=== PATIENT | male | born 1965 | race Caucasian/White ===

== ENCOUNTER 2017-04-03 09:02 | Emergency (ER) | payer BC ==
[2017-04-03] MEDS ORDERED: Ketorolac Tromethamine 30 MG/ML VIAL ONE (09:37)
[2017-04-03 09:46] LABS: #Basophils 0.1 thou/uL (0.0-0.2); #Eosinphils 0.4 thou/uL (0.0-0.7); #Lymphocytes 2.4 thou/uL (1.20-3.40); #Monocytes 0.7 thou/uL (0.11-0.59); #Neutrophils 4.2 thou/uL (1.40-6.50); %Basophils 0.7 % (0.0-1.0); %Eosinophils 5.2 % (0.0-10.0); %Monocytes 8.5 % (0.0-10.0); Hematocrit 41.5 % (42.0-52.0); Mean Platelet Volume 7.7 fL (7.4-10.4); Red Blood Cell (RBC) Count 4.55 mill/uL (4.70-6.10); White Blood Cell (WBC) Count 7.6 thou/uL (4.8-10.8)
[2017-04-03 09:53] LABS: PTT 26.4 SEC (22.9-36.1); Prothrombin Time 14.2 SEC (12.0-14.7)
[2017-04-03 10:14] LABS: Anion Gap 12 mmol/L (10-20); BUN (Urea Nitrogen) 13 mg/dL (8.4-25.7); Calc. Creatinine Clearance 0 mL/min (70-130); Carbon Dioxide 21 mmol/L (22-29); Chloride 106 mmol/L (98-107); Estimated GFR-MDRD 82
--- NOTE | 2017-04-03 12:08 | ULT ---
VENOUS DOPPLER ULTRASOUND OF THE LEFT UPPER EXTREMITY: Date: 04/03/17 HISTORY: Left upper arm edema. Patient had shoulder replacement on 02/26/17. TECHNIQUE: Garza scale ultrasound with color flow and spectral Doppler imaging of the deep venous system of the left upper extremity was performed. FINDINGS: There is good flow and normal spectral waveforms and compression in the left internal jugular, subcl pita, axillary, basilic, brachial, radial, ulnar, and cephalic veins. IMPRESSION: No evidence of deep venous thrombosis in the left upper extremity. POS: [facility]
[2017-04-03] MEDS ORDERED: Cephalexin 250 MG CAP ONE (12:54)
[2017-04-03] MEDS ORDERED: Sulfameth/Trimethoprim DS 800-160mg TAB ONE (12:54)
== END 2017-04-03 13:10 | disposition home or self-care (01) ==
LOC: ERS 09:02
DX: L03.114 Cellulitis of left upper limb (principal); E03.9 Hypothyroidism, unspecified; J45.909 Unspecified asthma, uncomplicated; F32.9 Major depressive disorder, single episode, unspecified; Z79.899 Other long term (current) drug therapy
CPT/HCPCS: 36415; 80048; 85025; 85379; 85610; 85730; 96361; 96374; J1885

== ENCOUNTER 2017-04-15 08:59 | Emergency (ER) | payer BC, OTHER ==
--- NOTE | 2017-04-15 10:00 | RAD ---
LEFT SHOULDER THREE VIEWS: History: Left shoulder pain. FINDINGS: Shoulder prosthesis is noted. When compared to prior exams dated 02-26-17 and 01-11-17, the fracture deformity involving the proxima l humerus is again noted. I do not confirm significant callus formation. The humeral component appea rs unremarkable with no evidence of loosening along the shaft. IMPRESSION: Shoulder prosthesis is in adequate position. Fracture of the proximal humerus again noted with fragm ents unchanged in position and appearance. POS: [facility]
--- NOTE | 2017-04-15 10:15 | RAD ---
CERVICAL SPINE THREE VIEWS: 04/15/2017 HISTORY: Cervical spine pain. COMPARISON: None. FINDINGS: The frontal examination demonstrates bilateral uncovertebral osteophyte formation at C3-C4, C5-C6, a nd C6-C7. There is straightening of the normal cervical lordosis on the lateral exam. No preverteb ral soft tissue swelling is seen. At C5-C6, C6-C7, and C7-T1, there is disk space narrowing and posterior osteophyte formation. Open- mouth odontoid view demonstrates a normal appearing dens and C1-C2 articulation. IMPRESSION: Multilevel degenerative change within the cervical spine. No acute osseous abnormality is evident; however, if this study was performed in the setting of trauma, CT advised. If nontraumatic radicula r symptoms are present, a follow-up cervical spine MRI may be beneficial. POS: [facility]
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
[2017-04-15] MEDS ORDERED: Ketorolac Tromethamine 60 MG/2 ML VIAL ONE (11:00)
== END 2017-04-15 11:31 | disposition home or self-care (01) ==
LOC: ERS 08:59
DX: S16.1XXA Strain of muscle, fascia and tendon at neck level, initial encounter (principal); E03.9 Hypothyroidism, unspecified; J45.909 Unspecified asthma, uncomplicated; F32.9 Major depressive disorder, single episode, unspecified; Z79.899 Other long term (current) drug therapy; Z87.442 Personal history of urinary calculi; V89.2XXA Person injured in unspecified motor-vehicle accident, traffic, initial encounter
CPT/HCPCS: 72040; 72125; 96372; J1885

== ENCOUNTER 2017-08-06 08:41 | Emergency (ER) | payer BC | END 2017-08-06 11:25 | disposition left against medical advice (07) | LOC: ERS 08:41 | DX: Z53.21 Procedure and treatment not carried out due to patient leaving prior to being seen by health care provider (principal) ==

== ENCOUNTER 2018-01-04 08:14 | Emergency (ER) | payer SELFPAY | END 2018-01-04 09:10 | disposition home or self-care (01) | LOC: ERS 08:14 | DX: K64.4 Residual hemorrhoidal skin tags (principal); E03.9 Hypothyroidism, unspecified; Z79.899 Other long term (current) drug therapy | CPT/HCPCS: 99283 ==

== ENCOUNTER 2022-02-07 12:25 | Emergency (ER) | payer OTHER, BC ==
[2022-02-07 12:55] LABS: #Basophils 0.1 thou/uL (0.0-0.2); #Eosinphils 0.2 thou/uL (0.0-0.7); #Lymphocytes 2.5 thou/uL (1.20-3.40); #Monocytes 0.5 thou/uL (0.11-0.59); %Basophils 0.6 % (0.0-1.0); %Eosinophils 1.9 % (0.0-10.0); %Lymphocytes 24.2 % (21.0-51.0); %Neutrophils 68.3 % (42.0-75.0); Hemoglobin 14.7 g/dL (14.0-18.0); Mean Corpuscular HGB CONC 32.6 g/dL (32.0-36.0); Mean Corpuscular Volume 98.1 fL (78.0-98.0); Mean Platelet Volume 9.6 fL (7.4-10.4); Platelet Count 138 thou/uL (130-400); RBC Distribution Width 11.5 % (11.5-14.5); Red Blood Cell (RBC) Count 4.59 mill/uL (4.70-6.10); White Blood Cell (WBC) Count 10.2 thou/uL (4.8-10.8)
[2022-02-07 12:57] LABS: PTT 24.4 sec (22.9-36.1); Prothrombin Time 13.7 sec (12.0-14.7)
[2022-02-07 13:10] LABS: ALT (SGPT) 17 U/L (8-55); AST (SGOT) 21 U/L (5-34); Albumin 4.3 g/dL (3.5-5.0); Alkaline Phosphatase 62 U/L (40-110); Anion Gap 14 mmol/L (10-20); BUN (Urea Nitrogen) 13 mg/dL (8.4-25.7); Bilirubin, Total 0.6 mg/dL (0.2-1.2); Calc. Creatinine Clearance 0 mL/min (70-130); Calcium 9.2 mg/dL (7.8-10.44); Carbon Dioxide 21 mmol/L (22-29); Chloride 108 mmol/L (98-107); Estimated GFR 91; Globulin 2.6 g/dL (2.4-3.5); Glucose 114 mg/dL (70-105); Potassium 3.6 mmol/L (3.5-5.1); Protein, Total 6.9 g/dL (6.0-8.3); Sodium 139 mmol/L (136-145)
[2022-02-07] MEDS ORDERED: Morphine 4 MG/ML VIAL ONE (13:46)
[2022-02-07] MEDS ORDERED: Ondansetron PF 4 MG/2 ML Vial ONE (13:47)
[2022-02-07] MEDS ORDERED: Ketorolac Tromethamine 30 MG/ML VIAL ONE (14:42)
[2022-02-07 14:50] LABS: Bilirubin Negative (Negative); Blood, Urine Negative (Negative); Clarity Clear (Clear); Glucose, Urine (Dipstick) Normal (Negative); Ketone, Urine Negative (Negative); Leukocyte Negative Leu/uL (Negative); Nitrite Negative (Negative); Protein, Urine (Dipstick) 10 mg/dL (Neg-Trace); Specific Gravity, Urine 1.046 (1.002-1.036); Urobilinogen Normal mg/dL (Less than 2); pH, Urine 6.5 (5.0-9.0)
== END 2022-02-07 14:50 | disposition home or self-care (01) ==
LOC: ERS 12:25
DX: S30.1XXA Contusion of abdominal wall, initial encounter (principal); V29.9XXA Motorcycle rider (driver) (passenger) injured in unspecified traffic accident, initial encounter
CPT/HCPCS: 36415; 70450; 71045; 71260; 72125; 72170; 74177; 76870; 80053; 81003; 85025; 85610; 85730; 86850; 86900; 86901; 93976; 96374; 96375; G0390; J1885; J2270; J2405